=== PATIENT | male | born 1955 | race Caucasian/White ===

== ENCOUNTER → 2018-06-04 | Outpatient (CLI) | payer OTHER ==
--- NOTE | 2018-06-04 15:29 | ECHOS ---
STRESS ECHOCARDIOGRAM DATE OF SERVICE: 06/04/2018 INDICATIONS: Chest pain. MEDICATIONS: Losartan, loratadine, gabapentin. BASELINE HEART RATE: 84 BASELINE BLOOD PRESSURE: 144/89 MAXIMUM HEART RATE: 138 MAXIMUM BLOOD PRESSURE: 212/82 85% MPHR: 136 100% MPHR: 160 METS: 7.1 MAXIMUM STAGE REACHED: III TOTAL EXERCISE TIME: 6 minutes and 15 seconds CLINICAL INFORMATION: Baseline rhythm is sinus mechanism, rate of 84, normal axis and intervals, poor R progression, nonspecific ST-T wave changes. Baseline blood pressure 144/89 mmHg. Patient exercised on Yehuda protocol for 6 minute 15 seconds reaching a peak rate 138 beats per minute which is equal to 86% maximum predicted heart rate. Peak blood pressure 212/82 mmHg. Test was terminated secondary to fatigue. There was no chest pain. Electrocardiograph monitoring revealed no evidence of diagnostic ischemic ST deviation. Baseline echocardiogram revealed normal wall thickening and motion. At peak exercise, there was normal wall motion augmentation with no hypokinesis or dyskinesis. Impression: 1. Average exercise tolerance with normal EKG response. 2. Normal stress echo with no evidence of stress induced ischemia. MMODL / IJN: [id number] / [facility]ENTERFarheen
== END | disposition home or self-care (01) ==
LOC: RADNMMAIN 09:54
PROVIDERS: ATTEND Family Medicine
DX: R07.9 Chest pain, unspecified (principal)
CPT/HCPCS: 93351; Q9950